=== PATIENT | female | born 1960 | race Caucasian/White ===

== ENCOUNTER 2019-08-03 10:47 | Emergency (ER) | payer OTHER ==
--- NOTE | 2019-08-03 11:22 | RAD REPORT ---
EXAM DESCRIPTION: CT - [id number] - 08/03/2019 11:04 am CLINICAL HISTORY: Trauma, head and neck injury. Fall injury COMPARISON: No comparisons TECHNIQUE: Axial 5 mm thick images of the head were obtained. Axial 2 mm thick images of the cervical spine were obtained with sagittal and coronal reconstruction images generated and reviewed. All CT scans are performed using dose optimization technique as appropriate and may include automated exposure control or mA/KV adjustment according to patient size. FINDINGS: CT HEAD WITHOUT CONTRAST: No acute hemorrhage, hydrocephalus or extra-axial collection is identified.No areas of brain edema or midline shift. The paranasal sinuses and mastoids are clear.The calvarium is intact. Small posterior scalp hematoma. CT CERVICAL SPINE WITHOUT CONTRAST: No fracture or subluxation.Moderate cervical degenerative changes.No prevertebral soft tissues swelli ng is identified. IMPRESSION: No acute intracranial or cervical spine findings. Moderate midcervical degenerative changes.
[2019-08-03] MEDS ORDERED: TETANUS & DIPHTHERIA TOX,ADULT 0.5 ML VIAL ONE (11:29)
--- NOTE | 2019-08-03 11:47 | ER ---
Nurse's Notes [facility] Name: Remi Vieira Age: 59 yrs Sex: Female : 1960 Arrival Date: 08/03/2019 Time: 10:49 Bed 20 Private MD: Diagnosis: Laceration without foreign body of scalp Presentation: 08/03 10:56 Presenting complaint: Patient states: Mechanical fall, fell backwards, hit back of ca1 head. Lac on base of skull. +LOC. Denies N/V/Dizziness at this time. Pt alert, Ox4. Transition of care: patient was not received from another setting of care. Onset of symptoms was August 03, 2019. Risk Assessment: Do you want to hurt yourself or someone else? Patient reports no desire to harm self or others. Initial Sepsis Screen: Does the patient meet any 2 criteria? No. Patient's initial sepsis screen is negative. Does the patient have a suspected source of infection? No. Patient's initial sepsis screen is negative. Care prior to arrival: None. 10:56 Method Of Arrival: Wheelchair ca1 10:56 Method Of Arrival: Wheelchair ca1 10:56 Acuity: DRE 2 ca1 10:59 Mechanism of Injury: Fall from standing position. Trauma event details: Injury occurred ca1 in the [facility], Injury occurred: at home. Injury occurred: August 03, 2019 Injury occurred at: 10:30. Trauma Activation: Alert Physician: ED Physician; Name: ; Notified At: ; Arrived At: Physician: General Surgeon; Name: ; Notified At: ; Arrived At: Physician: Radiology; Name: ; Notified At: ; Arrived At: Physician: Respiratory; Name: ; Notified At: ; Arrived At: Physician: Lab; Name: ; Notified At: ; Arrived At: Historical: - Allergies: 10:57 No Known Allergies; ca1 - Home Meds: 10:57 None [Active]; ca1 - PMHx: 10:57 None; ca1 - PSHx: 10:57 None; ca1 - Immunization history:: Adult Immunizations not up to date, Last tetanus immunization: unknown, Pneumococcal vaccine is not up to date, Flu vaccine is not up to date. - Social history:: Smoking status: Patient uses tobacco products, smokes two packs cigarettes per day. - Immunization history: Last tetanus immunization: unknown. - Ebola Screening: : Patient negative for fever greater than or equal to 101.5 degrees Fahrenheit, and additional compatible Ebola Virus Disease symptoms Patient denies exposure to infectious person Patient denies travel to an Ebola-affected area in the 21 days before illness onset No symptoms or risks identified at this time. Screenin:55 Abuse screen: Denies threats or abuse. Denies injuries from another. Tuberculosis bp screening: No symptoms or risk factors identified. 11:47 Nutritional screening: No deficits noted. Fall Risk None identified. bp Primary Survey: 10:55 NO uncontrolled hemorrhage observed. A: The patient is alert. Airway: patent, No bp supplemental oxygen in use on arrival. Breathing/Chest: Respiratory pattern: regular, Respiratory effort: spontaneous, unlabored. Circulation: Skin color: pink, Skin temperature: warm, dry. Disability Alert. Exposure/Environment: All clothing and personal items were removed. Forensic evidence collection is not deemed to be indicated at this time. Items placed in patient belonging bag. 11:59 Reassessment Breathing/Chest Respiratory pattern Regular Respiratory effort Spontaneous bp Unlabored. Assessment: 10:55 Reassessment: MAE Foss at bedside. ca1 10:55 General: Appears in no apparent distress. comfortable, Behavior is cooperative, bp appropriate for age, anxious. Pain: Complains of pain in left base of the skull. Neuro: No deficits noted. EENT: No deficits noted. Cardiovascular: No deficits noted. Respiratory: No deficits noted. GI: No signs and/or symptoms were reported involving the gastrointestinal system. : No signs and/or symptoms were reported regarding the genitourinary system. Derm: No deficits noted. Musculoskeletal: No deficits noted. Injury Description: Laceration sustained to left base of the skull is 0.5 to 2.5 cm long, not bleeding, was sustained 1-2 hours ago. no active bleeding noted at this time. 11:53 Reassessment: PT D/C HOME AMBULATORY WITH FAMILY, DX WITH SCALP LACERATION. bp Vital Signs: 10:57 BP 146 / 106; Pulse 98; Resp 17 S; Temp 98.2(O); Pulse Ox 94% on R/A; Weight 58.97 kg ca1 (R); Height 5 ft. 4 in. (162.56 cm) (R); Pain 08/08; 11:53 BP 147 / 105; Pulse 93; Resp 16; Temp 98; Pulse Ox 96% ; bp 10:57 Body Mass Index 22.31 (58.97 kg, 162.56 cm) ca1 Noah Coma Score: 10:55 Eye Response: spontaneous(4). Verbal Response: oriented(5). Motor Response: obeys bp commands(6). Total: 15. 11:05 Eye Response: spontaneous(4). Verbal Response: oriented(5). Motor Response: obeys jr8 commands(6). Total: 15. Trauma Score (Adult): 10:55 Eye Response: spontaneous(1); Verbal Response: oriented(1); Motor Response: obeys bp commands(2); Systolic BP: > 89 mm Hg(4); Respiratory Rate: 10 to 29 per min(4); Noah Score: 15; Trauma Score: 12 ED Course: 10:49 Patient arrived in ED. mr 10:55 Rolando Falcon, RN is Primary Nurse. bp 10:55 Patient has correct armband on for positive identification. Bed in low position. Call bp light in reach. Side rails up X2. Adult w/ patient. 10:55 Patient maintains SpO2 saturation greater than 95% on room air. Thermoregulation: warm bp blanket given to patient. 10:56 Pipo Simpson PA is [facility]. jr8 10:56 Nolan Ferrer MD is Attending Physician. jr8 10:57 Triage completed. ca1 10:57 Arm band placed on right wrist. ca1 11:07 CT Head C Spine In Process Unspecified. EDMS 11:32 Assist provider with laceration repair on back of head that was 2.5 cm. or less using bp andreina. Set up tray. Performed by Pipo WALL Patient tolerated well. 11:56 Patient did not have IV access during this emergency room visit. bleeding controlled, bp No redness/swelling at site. Pressure dressing applied. 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 Exp: bp 08/14/2021. Lot #: [id number]. } Route: IM; Site: right deltoid; 11:41 Follow up: Response: No adverse reaction bp Intake: 10:55 PO: 0ml; Total: 0ml. bp Output: 10:55 Urine: 0ml; Total: 0ml. bp Outcome: 11:46 Discharge ordered by MD. sharp 11:58 Discharged to home ambulatory, with family. bp 11:58 Condition: stable 11:58 Patient's length of stay was not longer than 2 hours. 12:00 Discharge instructions given to patient, Instructed on discharge instructions, follow bp up and referral plans. Demonstrated understanding of instructions, follow-up care, wound care. 12:01 Patient left the ED. bp Signatures: Dispatcher [employer] EDNY ReedKesha mr Suzialmaz, MAE Foss jrRolando Grant, RN RN bp Esperanza Santos RN RN ca1
--- NOTE | 2019-08-03 11:48 | EDPHYS ---
Physician Documentation [facility] Name: Remi Vieira Age: 59 yrs Sex: Female : 1960 Arrival Date: 08/03/2019 Time: 10:49 Bed 20 Private MD: CHACHA Physician Nolan Ferrer HPI: 08/03 11:05 This 59 yrs old Female presents to ER via Wheelchair with complaints of Head jr8 Injury With LOC-Adult. 11:05 The patient or guardian reports injury, a laceration, pain, tenderness. The complaints jr8 affect the left base of the skull. Context of injury: The problem was sustained at home, resulted from a fall. Onset: The symptoms/episode began/occurred acutely, today. Associated signs and symptoms: Loss of consciousness: This patient experience a loss of consciousness, Pertinent positives: loss of conciousness, headache. Severity of symptoms: At their worst the symptoms were moderate, in the emergency department the symptoms have improved. The patient has not experienced similar symptoms in the past. The patient has not recently seen a physician. Stated that she was cleaning and putting things away at home. Slipped on some water landing on back of head. + LOC. Patient doing well currently but with pain to back of head. Denies any other symptoms . Historical: - Allergies: 10:57 No Known Allergies; ca1 - Home Meds: 10:57 None [Active]; ca1 - PMHx: 10:57 None; ca1 - PSHx: 10:57 None; ca1 - Immunization history:: Adult Immunizations not up to date, Last tetanus immunization: unknown, Pneumococcal vaccine is not up to date, Flu vaccine is not up to date. - Social history:: Smoking status: Patient uses tobacco products, smokes two packs cigarettes per day. - Immunization history: Last tetanus immunization: unknown. - Ebola Screening: : Patient negative for fever greater than or equal to 101.5 degrees Fahrenheit, and additional compatible Ebola Virus Disease symptoms Patient denies exposure to infectious person Patient denies travel to an Ebola-affected area in the 21 days before illness onset No symptoms or risks identified at this time. ROS: 11:05 Eyes: Negative for injury, pain, redness, and discharge, ENT: Negative for injury, jr8 pain, and discharge, Neck: Negative for injury, pain, and swelling, Cardiovascular: Negative for chest pain, palpitations, and edema, Respiratory: Negative for shortness of breath, cough, wheezing, and pleuritic chest pain, Abdomen/GI: Negative for abdominal pain, nausea, vomiting, diarrhea, and constipation, Back: Negative for injury and pain, MS/Extremity: Negative for injury and deformity. 11:05 Skin: Positive for laceration(s). 11:05 Neuro: Positive for headache, loss of consciousness. Exam: 11:05 Eyes: Pupils equal round and reactive to light, extra-ocular motions intact. Lids and jr8 lashes normal. Conjunctiva and sclera are non-icteric and not injected. Cornea within normal limits. Periorbital areas with no swelling, redness, or edema. ENT: Nares patent. No nasal discharge, no septal abnormalities noted. Tympanic membranes are normal and external auditory canals are clear. Oropharynx with no redness, swelling, or masses, exudates, or evidence of obstruction, uvula midline. Mucous membranes moist. Neck: Trachea midline, no thyromegaly or masses palpated, and no cervical lymphadenopathy. Supple, full range of motion without nuchal rigidity, or vertebral point tenderness. No Meningismus. Chest/axilla: Normal chest wall appearance and motion. Nontender with no deformity. No lesions are appreciated. Cardiovascular: Regular rate and rhythm with a normal S1 and S2. No gallops, murmurs, or rubs. Normal PMI, no JVD. No pulse deficits. Respiratory: Lungs have equal breath sounds bilaterally, clear to auscultation and percussion. No rales, rhonchi or wheezes noted. No increased work of breathing, no retractions or nasal flaring. Abdomen/GI: Soft, non-tender, with normal bowel sounds. No distension or tympany. No guarding or rebound. No evidence of tenderness throughout. Back: No spinal tenderness. No costovertebral tenderness. Full range of motion. Skin: Warm, dry with normal turgor. Normal color with no rashes, no lesions, and no evidence of cellulitis. MS/ Extremity: Pulses equal, no cyanosis. Neurovascular intact. Full, normal range of motion. Neuro: Awake and alert, GCS 15, oriented to person, place, time, and situation. Cranial nerves II-XII grossly intact. Motor strength 5/5 in all extremities. Sensory grossly intact. Cerebellar exam normal. Normal gait. 11:05 Head/face: Noted is hematoma, that is mild, of the left base of the skull, a laceration(s), that is linear, 2.5 cm(s), of the left base of the skull. Vital Signs: 10:57 BP 146 / 106; Pulse 98; Resp 17 S; Temp 98.2(O); Pulse Ox 94% on R/A; Weight 58.97 kg ca1 (R); Height 5 ft. 4 in. (162.56 cm) (R); Pain 1/10; 11:53 BP 147 / 105; Pulse 93; Resp 16; Temp 98; Pulse Ox 96% ; bp 10:57 Body Mass Index 22.31 (58.97 kg, 162.56 cm) ca1 Mansura Coma Score: 10:55 Eye Response: spontaneous(4). Verbal Response: oriented(5). Motor Response: obeys bp commands(6). Total: 15. 11:05 Eye Response: spontaneous(4). Verbal Response: oriented(5). Motor Response: obeys jr8 commands(6). Total: 15. Trauma Score (Adult): 10:55 Eye Response: spontaneous(1); Verbal Response: oriented(1); Motor Response: obeys bp commands(2); Systolic BP: > 89 mm Hg(4); Respiratory Rate: 10 to 29 per min(4); Mansura Score: 15; Trauma Score: 12 Laceration: 11:44 Wound Repair of 2.5cm ( 1.0in ) subcutaneous laceration to left base of the skull. jr8 Linear shaped.. Minimal bleeding noted.. Distal neuro/vascular/tendon intact. Wound prep: Extensive cleansing with hibiclenz, Wound irrigation with saline, Wound explored extensively. Skin closed with 3 blanca Davis using staple gun. Patient tolerated well. MDM: 10:56 Patient medically screened. jr8 11:44 Data reviewed: vital signs, nurses notes, radiologic studies, CT scan, and as a result, jr8 I will discharge patient. Data interpreted: Pulse oximetry: on room air is 95 %. Interpretation: normal. Counseling: I had a detailed discussion with the patient and/or guardian regarding: the historical points, exam findings, and any diagnostic results supporting the discharge/admit diagnosis, radiology results, the need for outpatient follow up, a family practitioner, to return to the emergency department if symptoms worsen or persist or if there are any questions or concerns that arise at home. 08/03 10:56 Order name: CT Head C Spine; Complete Time: 11:28 pm1 Administered Medications: 11:05 Drug: Tetanus-Diphtheria Toxoid Adult 0.5 ml {[employer]er: [employer]. Exp: bp 08/14/2021. Lot #: [id number]. } Route: IM; Site: right deltoid; 11:41 Follow up: Response: No adverse reaction bp Disposition: 08/04 09:51 Co-signature as Attending Physician, Nolan Ferrer MD I agree with the assessment and stuart plan of care. Disposition: 08/03/19 11:46 Discharged to Home. Impression: Laceration without foreign body of scalp. - Condition is Stable. - Discharge Instructions: Laceration Care, Adult, Stitches, Blanca, or Adhesive Wound Closure. - Medication Reconciliation Form, Thank You Letter, Antibiotic Education, Prescription Opioid Use form. - Follow up: Private Physician; When: 1 week; Reason: Wound Recheck, Recheck today's complaints, Continuance of care, Staple/Suture removal, Re-evaluation by your physician. - Problem is new. - Symptoms have improved. Signatures: Dispatcher [employer] EDMO Nolan Ferrer MD MD cha Roszak, Josh, PA PA jr8 Yash Zaidi, HARDWARE INSTALLATION COORDINATOR HARDWARE INSTALLATION COORDINATOR pm1 Rolando Falcon RN RN bp Esperanza Santos RN RN ca1 Corrections: (The following items were deleted from the chart) 08/03 12:01 11:46 08/03/2019 11:46 Discharged to Home. Impression: Laceration without foreign body bp of scalp. Condition is Stable. Forms are Medication Reconciliation Form, Thank You Letter, Antibiotic Education, Prescription Opioid Use. Follow up: Private Physician; When: 1 week; Reason: Wound Recheck, Recheck today's complaints, Continuance of care, Staple/Suture removal, Re-evaluation by your physician. Problem is new. Symptoms have improved. jr8
[2019-08-03 12:09] VITALS: BP 147/105; TEMP 98; O2SAT 96
== END 2019-08-03 12:01 | disposition home or self-care (01) ==
LOC: ER 10:47
PROC: 0JQ00ZZ Repair Scalp Subcutaneous Tissue and Fascia, Open Approach (ICD-10-PCS; principal; 2019-08-03)
DX: S01.01XA Laceration without foreign body of scalp, initial encounter (principal); Z23 Encounter for immunization; F17.210 Nicotine dependence, cigarettes, uncomplicated; W19.XXXA Unspecified fall, initial encounter; Y93.9 Activity, unspecified; Y92.9 Unspecified place or not applicable
CPT/HCPCS: 70450; 72125; 90471; 90714; 99284

== ENCOUNTER 2019-08-10 09:47 | Emergency (ER) | payer OTHER ==
--- NOTE | 2019-08-10 10:24 | ER ---
Nurse's Notes [facility] Name: Remi Vieira Age: 59 yrs Sex: Female : 1960 Arrival Date: 08/10/2019 Time: 09:48 Bed 10 Private MD: Diagnosis: Encounter for removal of sutures-andreina Presentation: 08/10 09:58 Presenting complaint: Patient states: Im here to get my andreina taken out. I came last ss Sunday because I fell and hit the back of my head. Transition of care: patient was not received from another setting of care. Onset of symptoms was 2019. Risk Assessment: Do you want to hurt yourself or someone else? Patient reports no desire to harm self or others. Initial Sepsis Screen: Does the patient meet any 2 criteria? No. Patient's initial sepsis screen is negative. Does the patient have a suspected source of infection? No. Patient's initial sepsis screen is negative. Care prior to arrival: None. 09:58 Method Of Arrival: Ambulatory ss 09:58 Acuity: DRE 5 ss Triage Assessment: 09:58 General: Appears in no apparent distress. comfortable, Behavior is calm, cooperative, ss appropriate for age. Pain: Denies pain. EENT: No signs and/or symptoms were reported regarding the EENT system. Neuro: Level of Consciousness is awake, alert, obeys commands, Oriented to person, place, time, situation. Cardiovascular: Patient's skin is warm and dry. Respiratory: Airway is patent Respiratory effort is even, unlabored, Respiratory pattern is regular, symmetrical. GI: No signs and/or symptoms were reported involving the gastrointestinal system. : No signs and/or symptoms were reported regarding the genitourinary system. Derm: Skin is pink, warm \T\ dry. normal. Musculoskeletal: No signs and/or symptoms reported regarding the musculoskeletal system. Circulation, motion, and sensation intact. Historical: - Allergies: :58 No Known Allergies; ss - PMHx: :58 None; ss - Immunization history:: Flu vaccine is not up to date. - Social history:: Smoking status: Patient uses tobacco products, smokes one pack cigarettes per day. - Ebola Screening: : Patient denies travel to an Ebola-affected area in the 21 days before illness onset. Screenin:02 Abuse screen: Denies threats or abuse. Denies injuries from another. Nutritional ss screening: No deficits noted. Tuberculosis screening: No symptoms or risk factors identified. Fall Risk None identified. Assessment: 10:02 Reassessment: see triage assessment. ss Vital Signs: 09:58 BP 133 / 98; Pulse 75; Resp 18; Temp 97.4; Pulse Ox 97% on R/A; Weight 58.97 kg (R); ss Height 5 ft. 4 in. (162.56 cm) (R); Pain 0/10; 09:58 Body Mass Index 22.31 (58.97 kg, 162.56 cm) ss ED Course: 09:48 Patient arrived in ED. as 09:58 Triage completed. ss 09:58 Keshia Hinds FNP-C is [facility]. kb 09:58 Rd Ivy MD is Attending Physician. kb 09:58 Arm band placed on Patient placed in an exam room. ss 10:02 Patient has correct armband on for positive identification. ss 10:02 No provider procedures requiring assistance completed. Patient did not have IV access ss during this emergency room visit. 10:18 Zoë Argueta, RN is Primary Nurse. ss 10:26 Removal of Removed andreina from occipital area [place] site is well healed Patient ss tolerated well. Administered Medications: No medications were administered Outcome: 10:24 Discharge ordered by MD. kb 10:26 Discharged to home ambulatory. ss 10:26 Condition: good 10:26 Discharge instructions given to patient, family, Instructed on discharge instructions, follow up and referral plans. Demonstrated understanding of instructions, follow-up care. 10:27 Patient left the ED. ss Signatures: Keshia Hinds FNP-C FNP-Ckb Martinez, Amelia as Zoë Argueta, RN RN ss
--- NOTE | 2019-08-10 10:24 | EDPHYS ---
Physician Documentation [facility] Name: Remi Vieira Age: 59 yrs Sex: Female : 1960 Arrival Date: 08/10/2019 Time: 09:48 Bed 10 Private MD: ED Physician Rd Ivy HPI: 08/10 10:23 This 59 yrs old Female presents to ER via Ambulatory with complaints of kb Staple Removal. 10:23 The patient has andreina on the occipital area. Previous treatment: the care was kb rendered at [facility], Treatment type: The patient's original treatment included andreina. Sutures/andreina progress: The patient has no c/o's. The wound is well-healing with no redness, swelling, discharge, or dehiscence reported. The patient has not experienced similar symptoms in the past. The patient has not recently seen a physician. Historical: - Allergies: 09:58 No Known Allergies; ss - PMHx: :58 None; ss - Immunization history:: Flu vaccine is not up to date. - Social history:: Smoking status: Patient uses tobacco products, smokes one pack cigarettes per day. - Ebola Screening: : Patient denies travel to an Ebola-affected area in the 21 days before illness onset. ROS: 10:21 Constitutional: Negative for fever, chills, and weight loss, Neck: Negative for injury, kb pain, and swelling, Cardiovascular: Negative for chest pain, palpitations, and edema, Respiratory: Negative for shortness of breath, cough, wheezing, and pleuritic chest pain, Abdomen/GI: Negative for abdominal pain, nausea, vomiting, diarrhea, and constipation, Back: Negative for injury and pain, MS/Extremity: Negative for injury and deformity, Neuro: Negative for headache, weakness, numbness, tingling, and seizure. 10:21 Skin: Positive for andreina in scalp. Exam: 10:21 Constitutional: This is a well developed, well nourished patient who is awake, alert, kb and in no acute distress. Head/Face: Normocephalic, atraumatic. Chest/axilla: Normal chest wall appearance and motion. Nontender with no deformity. No lesions are appreciated. Cardiovascular: Regular rate and rhythm with a normal S1 and S2. No gallops, murmurs, or rubs. Normal PMI, no JVD. No pulse deficits. Respiratory: Lungs have equal breath sounds bilaterally, clear to auscultation and percussion. No rales, rhonchi or wheezes noted. No increased work of breathing, no retractions or nasal flaring. Abdomen/GI: Soft, non-tender, with normal bowel sounds. No distension or tympany. No guarding or rebound. No evidence of tenderness throughout. MS/ Extremity: Pulses equal, no cyanosis. Neurovascular intact. Full, normal range of motion. Neuro: Awake and alert, GCS 15, oriented to person, place, time, and situation. Cranial nerves II-XII grossly intact. Motor strength 5/5 in all extremities. Sensory grossly intact. Cerebellar exam normal. Normal gait. 10:21 Skin: Wound recheck: Staple laceration closure: the wound is healing well, the edges are well approximated, no evidence of dehiscence, no drainage, no erythema, no swelling. Vital Signs: 09:58 BP 133 / 98; Pulse 75; Resp 18; Temp 97.4; Pulse Ox 97% on R/A; Weight 58.97 kg (R); ss Height 5 ft. 4 in. (162.56 cm) (R); Pain 0/10; 09:58 Body Mass Index 22.31 (58.97 kg, 162.56 cm) ss Procedures: 10:21 Suture/Staple removal: Removed 3 andreina, from occipital area, site appears well kb healed, Patient tolerated well. MDM: 10:01 Patient medically screened. kb 10:21 Data reviewed: vital signs, nurses notes. Data interpreted: Pulse oximetry: on room air kb is 97 %. Interpretation: normal. 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 Administered Medications: No medications were administered Disposition: 13:50 Co-signature as Attending Physician, Rd Ivy MD. rn Disposition: 08/10/19 10:24 Discharged to Home. Impression: Encounter for removal of sutures - andreina. - Condition is Stable. - Discharge Instructions: Suture Removal, Care After. - Medication Reconciliation Form, Thank You Letter, Antibiotic Education, Prescription Opioid Use form. - Follow up: Emergency Department; When: As needed; Reason: Worsening of condition. Follow up: Private Physician; When: 2 - 3 days; Reason: Recheck today's complaints, Continuance of care, Re-evaluation by your physician. Signatures: Keshia Hinds, BRANCH SERVICE ASSOCIATE-C BRANCH SERVICE ASSOCIATE-Ckb Rd Ivy MD MD rn Zoë Argeuta RN RN ss Corrections: (The following items were deleted from the chart) 10:27 10:24 08/10/2019 10:24 Discharged to Home. Impression: Encounter for removal of sutures ss - andreina. Condition is Stable. Forms are Medication Reconciliation Form, Thank You Letter, Antibiotic Education, Prescription Opioid Use. Follow up: Emergency Department; When: As needed; Reason: Worsening of condition. Follow up: Private Physician; When: 2 - 3 days; Reason: Recheck today's complaints, Continuance of care, Re-evaluation by your physician. kb
[2019-08-10 10:33] VITALS: BP 133/98; TEMP 97.4; O2SAT 97
== END 2019-08-10 10:27 | disposition home or self-care (01) ==
LOC: ER 09:47
DX: Z48.02 Encounter for removal of sutures (principal); F17.210 Nicotine dependence, cigarettes, uncomplicated
CPT/HCPCS: 99281

== ENCOUNTER 2023-01-27 07:03 | Emergency (ER) | payer OTHER ==
[2023-01-27] MEDS ORDERED: LIDOCAINE 1% MPF 5 ML VIAL ONE (07:31)
--- NOTE | 2023-01-27 08:15 | ER ---
Nurse's Notes [facility] Name: Remi Vieira Age: 62 yrs Sex: Female : 1960 Arrival Date: 01/27/2023 Time: 07:03 Bed 7 Private MD: Diagnosis: Cutaneous abscess of left hand Presentation: 01/27 07:19 Chief complaint: Patient states: Redness and swelling to L hand that began almost 2 ss weeks ago after dog bite to L hand. PT reports that the swelling has gone down some, but she is concerned about the bump in the middle of her hand. Denies fever. Coronavirus screen: Client denies travel out of the [place] in the last 14 days. Ebola Screen: Patient denies exposure to infectious person. Patient denies travel to an Ebola-affected area in the 21 days before illness onset. Initial Sepsis Screen: Does the patient meet any 2 criteria? Yes Does the patient have a suspected source of infection? No. Patient's initial sepsis screen is negative. Risk Assessment: Do you want to hurt yourself or someone else? Patient reports no desire to harm self or others. Onset of symptoms was December 2022. 07:19 Method Of Arrival: Ambulatory ss 07:19 Acuity: DRE 3 ss Triage Assessment: 08:24 Bite description: bite sustained to dorsum of left hand by a dog, animal information: ko1 vaccination(s). General: Appears in no apparent distress. comfortable, Behavior is calm, cooperative, appropriate for age. Historical: - Allergies: 07:21 No Known Allergies; ss - Home Meds: 07:21 None [Active]; ss - PMHx: 07:21 None; ss - PSHx: 07:21 None; ss - Immunization history:: Client reports having NOT received the Covid vaccine. - Social history:: Smoking status: Patient reports the use of cigarette tobacco products, smokes one pack cigarettes per day. - Family history:: not pertinent. - Hospitalizations: : No recent hospitalization is reported. Screenin:30 [place] ED Fall Risk Assessment (Adult) History of falling in the last 3 months, ko1 including since admission No falls in past 3 months (0 pts) Confusion or Disorientation No (0 pts) Intoxicated or Sedated No (0 pts) Impaired Gait No (0 pts) Mobility Assist Device Used No (0 pt) Altered Elimination No (0 pt) Score/Fall Risk Level 0 - 2 = Low Risk Oriented to surroundings, Maintained a safe environment, Educated pt \T\ family on fall prevention, incl call for assistance when getting out of bed, Assessed \T\ reinforced patient's understanding of fall precautions, Provided non-skid footwear, Hourly rounding (assess needs \T\ fall precautionary measures) done, Used ambulatory aids as needed (educated on \T\ assisted with), Used gait belt as appropriate. Abuse screen: Denies threats or abuse. Denies injuries from another. Nutritional screening: No deficits noted. Tuberculosis screening: No symptoms or risk factors identified. Assessment: 07:30 General: Appears in no apparent distress. uncomfortable, Behavior is calm, cooperative, ko1 appropriate for age. Pain: Complains of pain in dorsum of left hand. Neuro: No deficits noted. Cardiovascular: No deficits noted. Respiratory: No deficits noted. GI: No deficits noted. : No deficits noted. EENT: No deficits noted. Derm: Skin red/swollen on top of left hand Skin is red. Musculoskeletal: No deficits noted. Injury Description: Bite sustained to dorsum of left hand caused by a dog, is was sustained 2 weeks. Vital Signs: 07:19 BP 153 / 95; Pulse 77; Resp 16; Temp 98(O); Pulse Ox 96% on R/A; Height 5 ft. 4 in. ; ss Pain 5/10; 08:21 BP 133 / 82; Pulse 80; Resp 18; Pulse Ox 99% ; ko1 07:19 Pain Scale: Adult ss ED Course: 07:07 Patient arrived in ED. ts1 07:07 Rd Ivy MD is Attending Physician. rn 07:11 Claudia Dai, ELIZABETH is Primary Nurse. ph 07:21 Triage completed. ss 07:21 Arm band placed on right wrist. ss 07:30 Patient has correct armband on for positive identification. Bed in low position. Call ko1 light in reach. Pulse ox on. NIBP on. 08:12 Dean Franco MD is Referral Physician. rn 08:22 Patient did not have IV access during this emergency room visit. ko1 08:22 Assist provider with I \T\ D: of an abscess on left hand Set up I\T\D tray. Performed by ko 1 Rd Ivy MD Wound packed. Dressing with 4X4s, tape Patient tolerated well. Administered Medications: 07:49 Drug: Lidocaine Infiltration (1 %) 1 vials {Note: given by Dr Ivy.} Volume: 5 ml; ko1 Route: Infiltration; Medication: 08:22 VIS not applicable for this client. ko1 Outcome: 08:14 Discharge ordered by . rn 08:23 Discharged to home ambulatory, with family. ko1 08:23 Condition: stable 08:23 Discharge instructions given to patient, family, Instructed on discharge instructions, follow up and referral plans. medication usage, wound care, Demonstrated understanding of instructions, follow-up care, medications, wound care, Prescriptions given X 2. 08:24 Patient left the ED. ko1 Signatures: Rd Ivy MD MD rn Blanchard, Shelby, RN RN Claudia Sifuentes RN RN ph Oliver, Kathy, RN RN ko1 Stephanie Lazar, ANAND PAS ts1 Corrections: (The following items were deleted from the chart) 08:23 08:22 No provider procedures requiring assistance completed. ko1 ko1
--- NOTE | 2023-01-27 08:15 | EDPHYS ---
Physician Documentation [facility] Name: Remi Vieira Age: 62 yrs Sex: Female : 1960 Arrival Date: 01/27/2023 Time: 07:03 Bed 7 Private MD: ED Physician Rd Ivy HPI: 01/27 07:16 This 62 yrs old Female presents to ER via Unassigned with complaints of Dog Bite. rn 07:16 The patient was bitten on the left hand. Onset: The symptoms/episode began/occurred 2 rn week(s) ago. Secondary to the bite the patient reports swelling, warmth. Associated signs and symptoms: Pertinent positives: erythema at site, swelling at site, tenderness, Pertinent negatives: fever, suspected foreign body. Severity of symptoms: At their worst the symptoms were moderate, in the emergency department the symptoms are unchanged. The patient has not experienced similar symptoms in the past. Pt reports dog bite almost 2 weeks ago, to left hand, "was worse", now improving but still area of tenderness and swelling dorsum of left hand, no fever. . Historical: - Allergies: 07:21 No Known Allergies; ss - Home Meds: 07:21 None [Active]; ss - PMHx: 07:21 None; ss - PSHx: 07:21 None; ss - Immunization history:: Client reports having NOT received the Covid vaccine. - Social history:: Smoking status: Patient reports the use of cigarette tobacco products, smokes one pack cigarettes per day. - Family history:: not pertinent. - Hospitalizations: : No recent hospitalization is reported. ROS: 07:16 Constitutional: Negative for fever, chills, and weight loss, MS/Extremity: + left hand rn dog bite and swelling. Skin: + redness and warmth to left hand Exam: 07:16 Constitutional: This is a well developed, well nourished patient who is awake, alert, rn and in no acute distress. Cardiovascular: Regular rate and rhythm. No pulse deficits. MS/ Extremity: Pulses equal, no cyanosis. Neurovascular intact. 2cm area of fluctuance superficial dorsum of left hand, not able to express anything with pressure. No swelling of fingers or palm of hand. NO streaking. Vital Signs: 07:19 BP 153 / 95; Pulse 77; Resp 16; Temp 98(O); Pulse Ox 96% on R/A; Height 5 ft. 4 in. ; ss Pain 5/10; 08:21 BP 133 / 82; Pulse 80; Resp 18; Pulse Ox 99% ; ko1 07:19 Pain Scale: Adult ss Procedures: 08:11 I \\T\\ D: Incision and drainage was performed for an abscess of the left left hand Prepped rn with Betadine, Anesthetized with 2 ml's 1% Lidocaine. Incised with #11 blade. Drained moderate amount purulent fluid. serosanguinous fluid. Packed with iodoform gauze, Dressing: sterile 4x4 gauze, the patient tolerated the procedure well. MDM: 07:07 Patient medically screened. rn 08:11 Differential diagnosis: cellulitis, abscess. Data reviewed: vital signs, nurses notes, rn and as a result, I will discharge patient. Counseling: I had a detailed discussion with the patient and/or guardian regarding: the historical points, exam findings, and any diagnostic results supporting the discharge/admit diagnosis, the need for outpatient follow up, to return to the emergency department if symptoms worsen or persist or if there are any questions or concerns that arise at home. Response to treatment: the patient's symptoms have markedly improved after treatment, and as a result, I will discharge patient. Special discussion: I discussed with the patient/guardian in detail that at this point there is no indication for admission to the hospital. It is understood, however, that if the symptoms persist or worsen the patient needs to return immediately for re-evaluation. 08:11 Special discussion: Based on the history and exam findings, there is no indication for rn further emergent testing or inpatient evaluation. I discussed with the patient/guardian the need to see the hand specialist for further evaluation of the symptoms. 01/27 07:21 Order name: Incision \\T\\ Drainage Setup; Complete Time: 07:23 rn Administered Medications: 07:49 Drug: Lidocaine Infiltration (1 %) 1 vials {Note: given by Dr Ivy.} Volume: 5 ml; ko1 Route: Infiltration; Disposition Summary: 01/27/23 08:14 Discharge Ordered Location: Home rn Problem: new rn Symptoms: have improved rn Condition: Stable rn Diagnosis - Cutaneous abscess of left hand rn Followup: rn - With: Dean Franco MD - When: As needed - Reason: Recheck today's complaints, Re-evaluation by your physician Discharge Instructions: - Discharge Summary Sheet rn - Skin Abscess rn - Incision and Drainage rn Forms: - Medication Reconciliation Form rn - Thank You Letter rn - 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
[2023-01-27 08:30] VITALS: TEMP 98
[2023-01-27 08:31] VITALS: BP 133/82; O2SAT 99
== END 2023-01-27 08:24 | disposition home or self-care (01) ==
LOC: ER 07:03
PROC: 0H9GXZZ Drainage of Left Hand Skin, External Approach (ICD-10-PCS; principal; 2023-01-27)
DX: L02.512 Cutaneous abscess of left hand (principal)
CPT/HCPCS: 99284; 10060; J2001